=== PATIENT | female | born 1965 | race Caucasian/White ===

== ENCOUNTER 2019-10-10 12:49 | Inpatient (IN) | payer BC, SELFPAY ==
[2019-10-10] VITALS (10 sets, daily range): BP systolic 89–150
[~2019-10-10] VITALS: Ht 177.8 cm; Wt 65.8 kg
--- NOTE | 2019-10-10 00:10 | NUR ---
First unit of Fresh Frozen Plasma Transfusion Initiated. Prevital signs taken. Will stay at patient's bedside for the first 15 min to monitor. Addendum: 10/11/19 at 0647 by Patricia Pathak RN *wrong date
--- NOTE | 2019-10-10 02:17 | NUR ---
Fresh Frozen Plasma completed. Vital signs stable. Patient tolerated, no transfusion reaction noted. Addendum: 10/11/19 at 0648 by Patricia Pathak RN *wrong date
--- NOTE | 2019-10-10 03:00 | NUR ---
2nd unit of packed red blood cells given. Consent signed per patient agreeing to administration of blood. Blood has been type and crossmatched. Blood sent from blood bank. Information on unit of blood checked against patient wristband at bedside by two nurses. All information matches. Patient or responsible green party informed of potential complications associated with blood transfusion. Informed of possible transfusion reaction symptoms. Aware of need to notify nurse at once of itching, shortness of breath, flushing, feeling of impending doom, or other symptoms not previously present. Vital signs taken within 5 minutes prior to initiation of transfusion. RN will remain with patient for first 15 minutes of transfusion at which time vital signs will be re-assessed. Addendum: 10/11/19 at 0649 by Patricia Pathak RN *wrong date
--- NOTE | 2019-10-10 12:50 | NUR ---
BROUGHT IN BY [facility], PLACED IN BED #1 AND TRIAGED. REPORT GIVEN TO OSCAR CONTE
--- NOTE | 2019-10-10 13:00 | NUR ---
Dee Dee reed in [facility] - 10/10/19 at 1517 by SDEDTD REPORT FROM OSCAR AGUILAR
--- NOTE | 2019-10-10 13:05 | NUR ---
DR HEMPHILL AT BEDSIDE TO ASSESS. GUIAC STOOL PERFORMED. TOLERATED WELL
[2019-10-10] MEDS ORDERED: PHYTONADIONE 10 MG in NS 50 ML IV ONE (13:15)
[2019-10-10] MEDS ORDERED: PANTOPRAZOLE SODIUM 40 MG/VIAL (PROTONIX) IVP ONE ×2 (13:15→15:00)
--- NOTE | 2019-10-10 13:27 | NUR ---
SPOKE WITH MOTHER OF PT SUKHJINDER AT [phone], SHE LIVES IN [place].
--- NOTE | 2019-10-10 13:45 | NUR ---
REPORT FROM OSCAR AGUILAR
--- NOTE | 2019-10-10 13:50 | NUR ---
Patient to ER bed 1
[2019-10-10 13:51] LABS: CALCIUM 7.8 mg/dL (8.4-11.0); CREATININE 1.45 mg/dL (0.55-1.30); POTASSIUM 3.8 mmol/L (3.5-5.1)
[2019-10-10 13:54] LABS: MEAN CORPUSCULAR HEMOGLOBIN 34 pg (27-31); MEAN CORPUSCULAR HGB CONC 34 % (32-36); MEAN CORPUSCULAR VOLUME 102 fL (79.0-98.0); PLATELET COUNT (AUTO) 145 K/uL (130-430); RED CELL DISTRIBUTION WIDTH 15.4 % (9.0-15.0); WHITE BLOOD COUNT (AUTO) 9.9 K/uL (4.8-10.8)
[2019-10-10] MEDS ORDERED: PHYTONADIONE 10 MG/ML AMP ONE (13:56)
[2019-10-10 13:57] LABS: ALBUMIN 1.9 g/dL (3.4-4.8); TOTAL BILIRUBIN 0.2 mg/dL (0.0-1.0)
[2019-10-10 13:58] LABS: RED BLOOD CELL COUNT(AUTO) 0.95 MIL/uL (4.2-6.2)
[2019-10-10 13:59] LABS: HEMOGLOBIN 3.2 g/dL (12.0-16.0)
[2019-10-10 14:00] LABS: HEMATOCRIT 9.6 % (36-48)
[2019-10-10] MEDS ORDERED: PANTOPRAZOLE SODIUM 40 MG/VIAL (PROTONIX) ONE (14:25)
[2019-10-10 14:29] LABS: INR > 9.0 (0.8-1.2); PROTHROMBIN TIME > 90.0 SECS (9.5-12.5)
--- NOTE | 2019-10-10 14:37 | NUR ---
Spoke with pt mother who left contact number ([phone]) and Campos Hernandez contact number ([phone])
[2019-10-10 14:38] LABS: ATYPICAL LYMPHOCYTES % 1 % (0-0); BAND % (MANUAL) 3 % (0-6); BASOPHILS % (MANUAL) 0 % (0-2); EOSINOPHILS % (MANUAL) 0 % (0-7); LYMPHOCYTES % (MANUAL) 5 % (20-46); MONOCYTES % (MANUAL) 1 % (0-11)
--- NOTE | 2019-10-10 15:17 | NUR ---
Patient will be admitted to care of DR. BRANCH. Admitted to ICU unit. Will go to room5 . Belongings list completed. Complete and up to date summary report printed. SBAR report to be given at bedside with opportunity for questions. Transfer to ICU via ACLS protocol. Licensed nurse present. IV present no signs or symptoms of infiltration.
--- NOTE | 2019-10-10 15:40 | NUR ---
Admit to ICU Received pt awake, oriented x4, pale, diaphoretic, on 2L O2 via NC. IV sites in place receiving IV fluid bolus. Starting pt on blood transfusion verified with 2nd RN. Situated patient to room and call light.
[2019-10-10] MEDS ORDERED: WARF7.5T2 PO (15:49)
[2019-10-10] MEDS ORDERED: COLC0.6T67 PO (15:49)
[2019-10-10] MEDS ORDERED: SER25 PO (15:49)
--- NOTE | 2019-10-10 15:49 | NUR ---
Medication reconciliation completed with information provided by PATIENT. Any prior medication reconciliation on file was reviewed and corrected.
--- NOTE | 2019-10-10 16:39 | NUR ---
Paged Dr. Godoy for orders. Spoke with exchange.
--- NOTE | 2019-10-10 16:46 | NUR ---
New consults paged to Dr. Cordova and Dr. Tran. Spoke with exchanges
[2019-10-10] MEDS ORDERED: LOPERAMIDE HCL 2 MG CAPSULE PO PRN (17:00)
[2019-10-10] MEDS ORDERED: ACETAMINOPHEN 325 MG TABLET PO PRN ×2 (17:00)
[2019-10-10] MEDS ORDERED: MORPHINE 2 MG/ML INJ. SYRINGE IVP PRN (17:00)
[2019-10-10] MEDS: MORPHINE 4 MG/ML INJ. SYRINGE IVP PRN ×2 (17:28→20:11)
[2019-10-10] MEDS: NACL 0.9% 1,000 ML IV SCH (17:29)
--- NOTE | 2019-10-10 17:29 | NUR ---
TRANSFUSION. HEMOGLOBIN 3.2, 1 UNIT PACKED RBC COMPLETED, NO ADVERSE REACTION NOTED.
[2019-10-10] MEDS: PANTOPRAZOLE SODIUM 40 MG in NS 50 ML IV SCH ×2 (17:31→22:24)
--- NOTE | 2019-10-10 17:50 | NUR ---
B.T. 1UNIT FFP HUNG, UNIT AND PT'S IDENTIFICATION VERIFIED BY ANOTHER RN. VITAL SIGNS CHECKED BEFORE AND DURING TRANSFUSION.
--- NOTE | 2019-10-10 19:45 | NUR ---
Received report from AM nurse using SBAR approach.
--- NOTE | 2019-10-10 20:21 | NUR ---
First Unit of FFP Transfusion completed. No allergic reaction noted. Vital signs taken.
--- NOTE | 2019-10-10 20:52 | NUR ---
BT INITIATION: Consent signed per patient agreeing to administration of blood. Blood has been type and crossmatched. Blood sent from blood bank. Information on unit of blood checked against patient wristband at bedside by two nurses. All information matches. Patient or responsible alliance party informed of potential complications associated with blood transfusion. Informed of possible transfusion reaction symptoms. Aware of need to notify nurse at once of itching, shortness of breath, flushing, feeling of impending doom, or other symptoms not previously present. Vital signs taken within 5 minutes prior to initiation of transfusion. RN will remain with patient for first 15 minutes of transfusion at which time vital signs will be re-assessed.
[2019-10-10] MEDS: QUEtiapine FUMARATE 25 MG TABLET PO SCH (22:24)
[2019-10-11] VITALS (18 sets, daily range): BP systolic 110–188
--- NOTE | 2019-10-11 00:10 | NUR ---
First unit of Fresh Frozen Plasma Transfusion Initiated. Prevital signs taken. Will stay at patient's bedside for the first 15 min to monitor.
[2019-10-11] MEDS: MORPHINE 4 MG/ML INJ. SYRINGE IVP PRN ×5 (00:55→21:11)
[2019-10-11] MEDS: PANTOPRAZOLE SODIUM 40 MG in NS 50 ML IV SCH ×5 (01:20→20:39)
--- NOTE | 2019-10-11 02:17 | NUR ---
Fresh Frozen Plasma completed. Vital signs stable. Patient tolerated, no transfusion reaction noted.
--- NOTE | 2019-10-11 03:00 | NUR ---
2nd unit of packed red blood cells given. Consent signed per patient agreeing to administration of blood. Blood has been type and crossmatched. Blood sent from blood bank. Information on unit of blood checked against patient wristband at bedside by two nurses. All information matches. Patient or responsible republican informed of potential complications associated with blood transfusion. Informed of possible transfusion reaction symptoms. Aware of need to notify nurse at once of itching, shortness of breath, flushing, feeling of impending doom, or other symptoms not previously present. Vital signs taken within 5 minutes prior to initiation of transfusion. RN will remain with patient for first 15 minutes of transfusion at which time vital signs will be re-assessed.
--- NOTE | 2019-10-11 06:31 | NUR ---
Packed Red Blood Transfusion completed. Vital signs stable. Patient tolerated, no transfusion reaction noted.
--- NOTE | 2019-10-11 07:41 | NUR ---
closing note Gave report to AM nurse using SBAR approach.
--- NOTE | 2019-10-11 07:50 | NUR ---
AM ASSESSMENT. PT ALERT, ANXIOUS, GAVE TIME FOR PT TO VERBALIZE HER NEEDS, AND ATTENDED, SOME COMPLAINTS ON HER MACHINE GOING OFF, IVF INFUSING NS AT 100 ML PER HR, PROTONIX DRIP AT 8 MG/HR, PT VERBALIZED NEED TO GET TO THE BATHROOM, OFFERED HER A BEDPAN, AND SHE USED THE BEDPAN, VOIDED ADEQUATE AMOUNT OF URINE.
[2019-10-11 08:55] LABS: BASOPHILS % (AUTO) 0.3 % (0.0-2.0); EOSINOPHILS % (AUTO) 0.4 % (0.0-4.0); HEMOGLOBIN 7.2 g/dL (12.0-16.0); LYMPHOCYTES # (AUTO) 1.4 K/uL (1.0-5.5); MEAN CORPUSCULAR HEMOGLOBIN 32 pg (27-31); MEAN CORPUSCULAR HGB CONC 35 % (32-36); MEAN CORPUSCULAR VOLUME 91 fL (79.0-98.0); MONOCYTES # (AUTO) 0.8 K/uL (0.0-1.0); MONOCYTES % (AUTO) 8.4 % (1.7-9.3); NEUTROPHILS # (AUTO) 6.8 K/uL (1.8-7.7); NEUTROPHILS % (AUTO) 74.9 % (40.0-70.0); PLATELET COUNT (AUTO) 121 K/uL (130-430); RED BLOOD CELL COUNT(AUTO) 2.25 MIL/uL (4.2-6.2); RED CELL DISTRIBUTION WIDTH 14.8 % (9.0-15.0)
[2019-10-11 08:56] LABS: HEMATOCRIT 20.4 % (36-48)
[2019-10-11] MEDS ORDERED: COLCHICINE 0.6 MG TABLET PO SCH (09:00)
[2019-10-11 09:04] LABS: PROTHROMBIN TIME 10.4 SECS (9.5-12.5)
[2019-10-11 09:16] LABS: ALBUMIN 2.8 g/dL (3.4-4.8); CALCIUM 8.1 mg/dL (8.4-11.0); CREATININE 0.96 mg/dL (0.55-1.30); POTASSIUM 3.8 mmol/L (3.5-5.1); TOTAL BILIRUBIN 0.5 mg/dL (0.0-1.0)
[2019-10-11 10:19] LABS: PROTHROMBIN TIME 10.2 SECS (9.5-12.5)
--- NOTE | 2019-10-11 10:20 | NUR ---
IV. ATTEMPTED ANOTHER IV ACCESS, ABLE TO INSERT 20 GAUGE CATHETER INTO LEFT FOREARM, WITH GOOD BLOOD RETURN NOTED.
--- NOTE | 2019-10-11 10:44 | NUR ---
PAIN. PT VERBALIZED TENDERNESS TO ABDOMEN, STATED IT FEELS LIKE MY INTESTINES ARE BEING SQUEEZED VERY HARD, MEDICATED WITH MORPHINE 4 MG IVP FOR COMFORT.
--- NOTE | 2019-10-11 11:10 | NUR ---
RELIEF. PT EXPRESSED GOOD RELIEF AFTER INTERVENTION.
[2019-10-11] MEDS ORDERED: CALCIUM CHLORIDE 1 GM in NS 100 ML IV ONE (12:00)
--- NOTE | 2019-10-11 12:27 | NUR ---
PSYCH CONSULT PAGED REASON FOR CONSULTATION:O.D. WAS CONSULT CALLED?Y PERSON WHO WAS NOTIFIED:SIMRAN CONSULTING PHYSICIAN:AFTAB REGALADO ( ONCONSULTANT CALL) DIRECTOR OF CHANNEL MARKETING SPECIALTY:PSYCH DIRECTOR OF CHANNEL MARKETING PHONE NUMBER:[phone] REQUESTING PHYSICIAN:BHARGAV PENDLETON
[2019-10-11] MEDS: NACL 0.9% 1,000 ML IV SCH ×2 (12:45→16:21)
--- NOTE | 2019-10-11 13:12 | NUR ---
BLOOD TRANSFUSION. 1 UNIT PACKED RBC HUNG. VITAL SIGNS BEFORE AND DURING THE TRANSFUSION MONITORED AND RECORDED. UNIT MATCHED WITH PT'S IDENTIFICATION VERIFIED BY ANOTHER RN.
--- NOTE | 2019-10-11 14:50 | NUR ---
ANXIETY. PT COMPLAINING THAT HER CIRCULATION TO HER LEGS ARE CUT OFF, SHE UNDONE HER BP CUFF MULTIPLE TIMES FROM THE LEG.
--- NOTE | 2019-10-11 14:58 | NUR ---
PAIN. PT ANXIOUSLY ASKING FOR HER NEXT PAIN MEDS FOR THE LAST ONE HOUR, COMPLAINED OF DISCOMFORT OVER HER LEFT LEG AND EACH TIME THE BP CUFF INFLATES THE CUFF, PT BECOMING UNEASY, IRRITABLE. MORPHINE 4 MG IVP GIVEN ALSO FOR HER ABDOMINAL PAIN.
[2019-10-11] MEDS ORDERED: COLCHICINE 0.6 MG TABLET PO ONE (15:30)
[2019-10-11] MEDS ORDERED: THIAMINE HCL 100 MG TABLET PO ONE (15:30)
--- NOTE | 2019-10-11 16:07 | NUR ---
Nutrition Update Chao Scale 16 noted. Pt admitted for Upper GI Bleed. Diet: Clear Liquid Diet, No Red BMI: 20.8 kg/m2 RD to follow per nutrition care standards.
--- NOTE | 2019-10-11 16:10 | NUR ---
B.T. TRANSFUSION COMPLETED WITHOUT ADVERSE REACTIONS.
[2019-10-11] MEDS: chlordiazePOXIDE HCL 25 MG CAPSULE PO SCH ×2 (16:25→21:04)
--- NOTE | 2019-10-11 18:50 | NUR ---
DIET. PT SERVED WITH CLEAR LIQUID TRAY, AND TOLERATED WELL.
--- NOTE | 2019-10-11 19:15 | NUR ---
Opening Note Received report from AM nurse using SBAR approach.
[2019-10-11] MEDS: QUEtiapine FUMARATE 25 MG TABLET PO SCH (21:05)
[2019-10-11] MEDS: COLCHICINE 0.6 MG TABLET PO SCH (21:05)
[2019-10-11 21:14] LABS: BILIRUBIN,URINE NEGATIVE (NEGATIVE); BLOOD, URINE 2+ (NEGATIVE); CLARITY/URINE CLEAR (CLEAR); COLOR,URINE YELLOW (YELLOW); GLUCOSE,URINE NEGATIVE (NEGATIVE); KETONES,URINE NEGATIVE (NEGATIVE); LEUKOCYTE ESTERASE ,URINE NEGATIVE (NEGATIVE); NITRITE, URINE NEGATIVE (NEGATIVE); PROTEIN URINE NEGATIVE (NEGATIVE); UROBILINOGEN,URINE 0.2 (0.2-1.0)
[2019-10-11 21:26] LABS: BACTERIA,URINE FEW /HPF (None Seen); MUCUS,URINE None Seen /LPF (None Seen); RBC,URINE NONE SEEN /HPF (0-3); WBC,URINE 0-3 /HPF (0-3)
[2019-10-12] MEDS: MORPHINE 4 MG/ML INJ. SYRINGE IVP PRN ×2 (02:21→07:48)
--- NOTE | 2019-10-12 06:00 | NUR ---
blood pressure cuff patient constantly taking off equipment. Provided radial cuff for blood pressure but patient took it off the whole night. did not get blood pressure readings.
[2019-10-12] MEDS: PANTOPRAZOLE SODIUM 40 MG in NS 50 ML IV SCH ×2 (06:17→09:31)
[2019-10-12 06:34] LABS: PROTHROMBIN TIME 10.1 SECS (9.5-12.5)
[2019-10-12 06:54] LABS: ALBUMIN 2.4 g/dL (3.4-4.8); CREATININE 0.8 mg/dL (0.55-1.30); PHOSPHORUS 2.9 mg/dL (2.7-4.5); POTASSIUM 3.2 mmol/L (3.5-5.1); TOTAL BILIRUBIN 0.4 mg/dL (0.0-1.0)
[2019-10-12 07:00] VITALS: BP_SYST 120
--- NOTE | 2019-10-12 07:15 | NUR ---
Closing Note Endorsed report to AM nurse using SBAR approach.
--- NOTE | 2019-10-12 07:25 | NUR ---
Opening Note Received SBAR report at bedside from endorsing RN see VS flow sheet
[2019-10-12 07:49] LABS: BASOPHILS % (AUTO) 0.3 % (0.0-2.0); EOSINOPHILS % (AUTO) 0.4 % (0.0-4.0); HEMOGLOBIN 7.3 g/dL (12.0-16.0); LYMPHOCYTES # (AUTO) 1.8 K/uL (1.0-5.5); MEAN CORPUSCULAR HEMOGLOBIN 31 pg (27-31); MEAN CORPUSCULAR HGB CONC 34 % (32-36); MEAN CORPUSCULAR VOLUME 91 fL (79.0-98.0); MONOCYTES # (AUTO) 0.7 K/uL (0.0-1.0); NEUTROPHILS # (AUTO) 5.3 K/uL (1.8-7.7); PLATELET COUNT (AUTO) 129 K/uL (130-430); RED BLOOD CELL COUNT(AUTO) 2.35 MIL/uL (4.2-6.2); RED CELL DISTRIBUTION WIDTH 15.7 % (9.0-15.0); RETICULOCYTE COUNT 4.7 % (0.5-1.5); WHITE BLOOD COUNT (AUTO) 7.9 K/uL (4.8-10.8)
[2019-10-12 08:00] VITALS: BP_SYST 118
[2019-10-12 08:01] LABS: HEMATOCRIT 21.4 % (36-48)
[2019-10-12 08:02] LABS: NEUTROPHILS % (AUTO) 67.3 % (40.0-70.0)
--- NOTE | 2019-10-12 08:50 | NUR ---
Bedside RN informed me that the patient wants to leave AMA. I informed the bedside RN to notifiy Dr. Godoy and that he felt she was suicidal and indicated it yesterday in his notes. Bedside RN mentioned that she had not verbalized suicidal ideas or thoughts to him while in his care. Addendum: 10/12/19 at 1057 by Cathy Brown RN Requested surveillance system monitor to page Dr. Reich again.
[2019-10-12 09:00] VITALS: BP_SYST 132
[2019-10-12] MEDS: chlordiazePOXIDE HCL 25 MG CAPSULE PO SCH (09:00)
[2019-10-12] MEDS: COLCHICINE 0.6 MG TABLET PO SCH (09:00)
[2019-10-12] MEDS ORDERED: THIAMINE HCL 100 MG TABLET PO SCH (09:00)
[2019-10-12] MEDS ORDERED: FOLIC ACID 1 MG TABLET PO SCH (09:00)
--- NOTE | 2019-10-12 09:30 | NUR ---
Ultrasound at bedside
[2019-10-12 10:00] VITALS: BP_SYST 128
--- NOTE | 2019-10-12 10:09 | NUR ---
I called and spoke with Dr. Godoy and informed him that his patient wants to leave AMA. He was upset and said she cannot leave. She needs to be cleared by psych first. He said he ordered telepsych consult yesterday and it wasn't done so he ordered Dr. Reich. The consult was called yesterday but as of today he had not been in to see the pt. The consult was called again this morning. wood crew supervisor Kristie was notified that the pt wants to leave AMA. She said there was nothing we could do if the patient is not on a hold, but to notify the doctor. I informed her that I had already done that.
--- NOTE | 2019-10-12 10:09 | NUR ---
PAGED DR. CHICAS (DR. VIDALES SUPERVISOR BLUEPRINTING AND PHOTOCOPY) SPOKE TO EXCHANGE DIALED [phone]
--- NOTE | 2019-10-12 10:09 | NUR ---
Dr. Godoy does not want PT to leave AMA due to suicide risk Pt requested to leave AMA. notified, who insisted PT should not be allowed to leave due to suicide risk. Charge nurse and house worker notified.
--- NOTE | 2019-10-12 10:15 | NUR ---
IV access removed PT insisted on leaving. I instructed her she should not leave against Dr. Godoy's orders, but she insisted she would just walk out. I therefore removed her IV access and asked her not to leave.
--- NOTE | 2019-10-12 10:23 | NUR ---
PT eloped with her belongings during the confusion of a pt. Security,House Sip, and Dr. Godoy notified
--- NOTE | 2019-10-12 10:23 | NUR ---
While on the medical surgical unit requesting assistance with using tele psych/lobito for a psych consult, I saw the patient walking down the [address] towards the exit with her belongings. Security was behind her. Both of use walked with the pt towards the exit and I asked the pt to please stay and I would get her doctor on the phone to talk to her. She refused and said " Im leaving and you can't touch me, you have to let me go". I asked the pt to stay several times, but she declined. Pt is not on a 5150 hold and has not been cleared by psych yet.
--- NOTE | 2019-10-12 10:30 | NUR ---
Spoke with Dr. Godoy on the phone and informed him that his pt left AMA. He was upset and requested that the police be notified.
--- NOTE | 2019-10-12 10:33 | NUR ---
Spoke with Melo Dean, and informed her that the pt left AMA and was suicidal according to Dr. Godoy. I informed her that the patient was not on a hold. Her questions were answered and she said they would look for her.
--- NOTE | 2019-10-12 10:50 | NUR ---
Dr. Licea, psych returned call and spoke to bedside RN and was informed that the patient left AMA.
== END 2019-10-12 10:23 | disposition left against medical advice (07) | DRG 377 ==
LOC: SED 12:49 → SIC 15:17
PROVIDERS: ADMIT Internal Medicine; ATTEND Internal Medicine
PROC: 30233N1 Transfusion of Nonautologous Red Blood Cells into Peripheral Vein, Percutaneous Approach (ICD-10-PCS; principal; 2019-10-10)
PROC: 30233K1 Transfusion of Nonautologous Frozen Plasma into Peripheral Vein, Percutaneous Approach (ICD-10-PCS; 2019-10-10)
DX: K92.2 Gastrointestinal hemorrhage, unspecified (principal); R57.8 Other shock; R57.1 Hypovolemic shock; N17.0 Acute kidney failure with tubular necrosis; D62 Acute posthemorrhagic anemia; D68.51 Activated protein C resistance; F31.9 Bipolar disorder, unspecified; R10.9 Unspecified abdominal pain; Z53.29 Procedure and treatment not carried out because of patient's decision for other reasons; T45.515A Adverse effect of anticoagulants, initial encounter; R79.89 Other specified abnormal findings of blood chemistry; M10.9 Gout, unspecified; Z83.2 Family history of diseases of the blood and blood-forming organs and certain disorders involving the immune mechanism; Z86.711 Personal history of pulmonary embolism; Y92.89 Other specified places as the place of occurrence of the external cause; Z03.818 Encounter for observation for suspected exposure to other biological agents ruled out
CPT/HCPCS: 36415; 36430; 76700-TC; 80053; 81000-TC; 82728; 83735-TC; 84100-TC; 85007; 85025; 85027; 85044-TC; 85610-TC; 85730-TC; 86710; 86886; 86900; 86901; 86920; 87081; 96365; 96375; 96376; 99285; C9113; J2270; J3430; J7030; J7040; J7050; P9021; P9059; U0003-CS